=== PATIENT | male | born 1985 | race Caucasian/White ===

== ENCOUNTER 2021-01-12 11:14 | Emergency (ER) | payer OTHER, SELFPAY ==
[2021-01-12 11:45] VITALS: BP 134/76; PULSE 100; RESP 16; TEMP 35.7; O2SAT 98
--- NOTE | 2021-01-12 12:04 | ED.EYEPROB ---
HPI - Eye Problem General Chief complaint: Eye Problems Stated complaint: left eye pain History of Present Illness HPI Narrative: This is a 35-year-old male comes in complaining of cough congestion sore throat with left eye drainage and swelling. Patient states that he has been sick for the past couple days where he goes into some sweating he has past medical history of hepatitis C as well as some shortness of breath Related Data Allergies Allergy/AdvReac Type Severity Reaction Status Date / Time No Known Allergies Allergy Verified 01/12/21 11:48 Review of Systems Review of Systems: Left eye pain, coughing congestion sore throat All systems reviewed & are unremarkable except as noted in HPI and below PMFSH Social History Social History (Updated 01/09/19 @ 16:27 by JEFF Villarreal) Smoking status: Current every day smoker Tobacco type: cigarettes Alcohol intake: current Alcohol use details: socially Substance use: current Substance use type: marijuana Gender identity (if verbalized by the patient): Male Comments At time as signature, I have reviewed and agree with nursing past medical, social, surgical and family history. Please see nursing chart for further information. There is no relevant family history pertinent to the presenting complaint. Exam Narrative: GENERAL:Well-appearing, well-nourished, and in no acute distress. HEAD:Normocephalic EYES: PERRLA left lower eyelid no near is swollen with erythema and yellowish drainage noted ENT: Nares clear, mild rhinorrhea pharyngeal erythema swollen enlarged tonsils bilaterally small petechiae noted CHEST: Clear to auscultation. No respiratory distress. HEART: Regular rate and rhythm. EXTREMITIES: Normal range of motion. No edema. SKIN: Warm, dry, no rash. NEURO: No focal deficits. Alert and oriented x3. Course Course Emergency Course: Positive for strep throat Vital Signs Vital signs: Vital Signs Temperature 96.3 F L 01/12/21 11:45 Pulse Rate 100 01/12/21 11:45 Respiratory Rate 16 01/12/21 11:45 Blood Pressure 134/76 01/12/21 11:45 Pulse Oximetry 98 01/12/21 11:45 Temperature 96.3 F L 01/12/21 11:45 Pulse Rate 100 01/12/21 11:45 Respiratory Rate 16 01/12/21 11:45 Blood Pressure 134/76 01/12/21 11:45 Pulse Oximetry 98 01/12/21 11:45 MDM - Eye Problem Lab Data Labs: Lab Results 01/12/21 Range/Units 11:55 POC SARS CoV-2 Ag Negative (Negative) Influenza A Screen Negative Reference Range: Negative Influenza B Screen Negative Reference Range: Negative Strep Screen Positive Group A Strep *(Reference Range: Negative)* Discharge Plan Discharge Clinical Impression: Strep throat, Hordeolum externum left lower eyelid Patient Disposition: Home, Self-Care Condition: Stable Instructions: Antibiotic Form, Strep Throat (ED), Stye (ED) Additional Instructions: Take the medication as prescribed. Salt water gargles and/or may use topical anesthetic (eg. Chloraseptic spray) Take tylenol and ibuprofen as needed for pain and fever as directed. Throw away the toothbrush after 24hours of antibiotic. Follow up with primary care provider in 2-3 days if condition is not improving or seek ER visit if your child starts breathing fast/has trouble breathing, is not drinking enough fluids, will not wake up or will not interact with you. Use warm compresses: This will help decrease swelling and pain. Wet a clean washcloth with warm water and place it on your eye for 10 to 15 minutes, 3 to 4 times each day or as directed. Keep your hands away from your eye: This helps to prevent the spread of infection to other parts of the eye. Wash your hands often with soap and dry with a clean towel. Do not squeeze the stye. Do not use eye makeu
== END 2021-01-12 12:35 | disposition home or self-care (01) ==
PROVIDERS: Emergency Provider Nurse Practitioner Family
DX: J02.0 Streptococcal pharyngitis (principal); H00.015 Hordeolum externum left lower eyelid; Z20.822 Contact with and (suspected) exposure to COVID-19; F17.210 Nicotine dependence, cigarettes, uncomplicated
CPT/HCPCS: 87426; 87804; 87880; 99213; A9270; C9803; G0463

== ENCOUNTER 2022-02-18 14:02 | Emergency (ER) | payer OTHER, SELFPAY ==
--- NOTE | ~2022-02-18 | XR_ITS ---
EXAMINATION: XR chest 2V DATE: 02/18/2022 15:15 INDICATION: Smoker presenting with one week of cough TECHNIQUE: PA and lateral views of the chest were obtained. COMPARISON: None FINDINGS: Linear discoid atelectasis at the left lower lung zone. No other airspace opacities, pulmonary edema, pleural effusion or pneumothorax. The cardiomediastinal silhouette is normal. Visualized bones and s oft tissues are unremarkable. IMPRESSION: 1. Linear discoid atelectasis at the left lower lung zone. Reviewed, dictated and finalized at location A. [facility] RN
[2022-02-18 14:04] VITALS: BP 133/67; PULSE 56; RESP 16; TEMP 36.6; O2SAT 100
--- NOTE | 2022-02-18 14:54 | ED.GENADULT ---
HPI - General Adult General Chief complaint: Upper Respiratory Infection Stated complaint: cold flu Source: patient Mode of arrival: ambulatory Limitations: no limitations History of Present Illness HPI narrative: Patient presents for evaluation of sick symptoms for the last week. Symptoms include productive cough of green sputum and sore throat. No fever, chills, nausea, vomiting, diarrhea. He has several family members who are currently sick but he is not sure if they ever received a formal diagnosis. No personal history of COVID. He has had COVID vaccination. He is taking some [id number] cough flu medicine which seemed to help. He smokes approximately 5 cigarettes daily. He has underlying hepatitis-C. No additional complaints or concerns. Related Data Home Medications Medication Instructions Recorded Confirmed No Home Medications 02/18/22 02/18/22 Allergies Allergy/AdvReac Type Severity Reaction Status Date / Time No Known Allergies Allergy Verified 02/18/22 14:13 Review of Systems Review of Systems: CONSTITUTIONAL: Denies fever, chills, or sweats. EYES: Denies visual changes, redness, or discharge. ENT: Reports sore throat. Denies rhinorrhea, congestion, or otalgia. CARDIOVASCULAR: Denies chest pain, palpitations, or edema. RESPIRATORY: Reports productive cough of green sputum. Denies shortness of breath. GASTROINTESTINAL: Denies abdominal pain, nausea, vomiting, or diarrhea. GENITOURINARY: Denies dysuria or hematuria. SKIN: Denies rash or itching. MUSCULOSKELETAL: Denies back pain, joint pain, or myalgia. NEUROLOGIC: Denies headache, numbness, dizziness, or weakness. PSYCHIATRIC: Denies anxiety or depression. [facility] Past Medical History Medical History (Updated 02/18/22 @ 15:53 by JEFF Hightower, ) Hepatitis C Surgical History Surgical History (Updated 02/18/22 @ 14:56 by JEFF Hightower, ) No pertinent past surgical history Family History Family History Mother Family history non-contributory Social History Social History Smoking status: Current every day smoker Tobacco type: cigarettes Alcohol intake: current Alcohol use details: socially Substance use: current Substance use type: marijuana Gender identity (if verbalized by the patient): Male Exam Narrative: GENERAL: Well-appearing, well-nourished, and in no acute distress. HEAD: Normocephalic, atraumatic. EYES: PERRLA and EOMI. ENT: Nares clear, no rhinorrhea or epistaxis. Mucous membranes moist. Oropharynx without tonsillar hypertrophy exudate or other lesions. Bilateral TMs pearly roy nonbulging NECK: Supple. No adenopathy or masses. No carotid bruits or JVD CHEST: Clear to auscultation. No respiratory distress. No wheezes rales or rhonchi HEART: Regular rate and rhythm. No murmur heard. Normal peripheral pulses. ABDOMEN: Soft, nontender, nondistended, normal active bowel sounds. EXTREMITIES: Normal range of motion. No edema. SKIN: Warm, dry, no rash. NEURO: No focal deficits. Alert and oriented x3. PSYCH: Normal mood and affect. Course Course Emergency Course: This is a 36-year-old male who presented for evaluation of sick symptoms. Influenza was negative. Chest x-ray not consistent with pneumonia. He does have COVID. Discussed risks versus benefits of Paxlovid and opted not to use medication due to potential for rebound. Increase hydration. Follow up with primary OTC meds for symptom management. Go to ER for difficulty breathing. Pt in agreement with plan of care. Level of Care: Express Care Visit Vital Signs Vital signs: Vital Signs Temperature 36.6 C 02/18/22 14:04 Pulse Rate 56 L 02/18/22 14:04 Respiratory Rate 16 02/18/22 14:04 Blood Pressure 133/67 02/18/22 14:04 Pulse Oximetry 100 02/18/22 14:04 Oxygen Delivery Room Air 1
== END 2022-02-18 15:54 | disposition home or self-care (01) ==
PROVIDERS: Emergency Provider Nurse Practitioner
DX: U07.1 COVID-19 (principal); F17.210 Nicotine dependence, cigarettes, uncomplicated; F12.90 Cannabis use, unspecified, uncomplicated
CPT/HCPCS: 71046; 87081; 87426; 87804; 99213; C9803; G0463